=== PATIENT | female | born 1950 | race Hispanic/Latino ===

== ENCOUNTER 2020-08-23 07:32 | Day surgery (SDC) | payer MEDICARE ==
[2020-08-23] MEDS ORDERED: SODIUM CHLORIDE 0.9% 500 ML 500 ML IV SCH (08:00)
[2020-08-23 08:22] LABS: Basophils # (Auto) 0.1 K/mm3 (0.0-0.1); Basophils % (Auto) 1.1 % (0.0-1.8); Eosinophils # (Auto) 0.3 K/mm3 (0.0-0.4); Eosinophils % (Auto) 4.3 % (0.0-4.3); Hematocrit 36.1 % (30.3-42.9); Hemoglobin 12.8 gm/dl (10.1-14.3); Lymphocytes % (Auto) 26.1 % (13.4-35.0); Mean Corpuscular HGB Conc 36 % (30-34); Mean Corpuscular Volume 90 fl (79-97); Monocytes # (Auto) 0.4 K/mm3 (0.0-0.8); Monocytes % (Auto) 5.2 % (0.0-7.3); Platelet Count 198 K/mm3 (140-440); Red Blood Count 4.01 M/mm3 (3.65-5.03); Red Cell Distribution Width 14.5 % (13.2-15.2)
[2020-08-23] MEDS ORDERED: ASPIRIN EC 325 MG TAB PO ONE ×2 (08:25→08:50)
[2020-08-23 08:32] LABS: INR 0.95 (0.87-1.13); Partial Thromboplastin Time 26.5 Sec. (24.2-36.6)
[2020-08-23 08:35] LABS: Calcium 10.1 mg/dL (8.4-10.2)
[2020-08-23] MEDS ORDERED: HEPARIN/NS 5000 UNIT/500ML 1,000 ML IR ONE (08:42)
[2020-08-23] MEDS ORDERED: diphenhydrAMINE 50 MG/ML VIAL IV NR (08:47)
[2020-08-23] MEDS ORDERED: diphenhydrAMINE 50 MG/ML VIAL ONE (08:52)
[2020-08-23] MEDS ORDERED: ATROPINE 0.1% (1 MG/10 ML) CARDIAC SYRINGE ONE (08:54)
[2020-08-23] MEDS ORDERED: DEXTROSE 50% IN WATER (25GM) 50 ML SYRINGE IV ONE (09:10)
[2020-08-23] MEDS: fentaNYL 100 MCG/2 ML INJ ONE ×2 (09:34→09:42)
[2020-08-23] MEDS: MIDAZOLAM 2 MG/2 ML INJ ONE ×2 (09:34→09:42)
[2020-08-23] MEDS: LIDOCAINE (2%) 20 MG/1 ML VIAL 20 ML MDV INFILTRATI ONE ×2 (09:34→09:44)
[2020-08-23] MEDS: VERAPAMIL 5 MG/2 ML INJ ONE ×2 (09:35→09:46)
[2020-08-23] MEDS: HEPARIN 10,000 UNITS/10 ML VIAL ONE ×2 (09:35→09:46)
[2020-08-23] MEDS: NITROGLYCERIN SYRINGE 3 ML ONE ×2 (09:36→09:46)
[2020-08-23] MEDS ORDERED: D5W/0.45% NACL 1,000 ML IV SCH (10:00)
--- NOTE | 2020-08-23 11:05 | Cardiac Catherization Report ---
DATE OF SERVICE: 08/23/2020 CARDIAC CATHETERIZATION REPORT REASON FOR PROCEDURE: The patient is a 70-year-old woman with coronary artery disease, who is referred for a cardiac catheterization. INDICATION: Abnormal preoperative thallium stress test, in preparation for left shoulder surgery. She has a long history of coronary artery disease, with a chronic total occlusion of the LAD. The LAD is known to have a complete occlusion within the long stented segment extending from its proximal through the mid segment into the distal vessel. A previous attempt at coronary bypass surgery was unsuccessful and the patient was instead treated with transmyocardial laser revascularization. She was thereafter placed on maximal antianginal therapy for non-revascularizable LAD disease. Risks and benefits of the cardiac catheterization procedure were discussed with the patient, she consented to proceed. PROCEDURES PERFORMED: 1. Left heart catheterization. 2. Selective left and right coronary angiography. 3. Selective angiography of saphenous vein graft. 4. Sedation time start 09:43 and 09:55. DESCRIPTION OF PROCEDURE: The patient was prepped and draped in a sterile fashion after informed consent. The right radial cath site was prepped and draped after a negative Cornell's test. The right radial artery was entered using the Seldinger technique followed by placement of a 6-Kenyan hydrophilic sheath. Routine radial cocktail was administered via the sheath. We then performed left coronary angiography using a #3.5 left Reta catheter. A 4 right Reta was used for right coronary angiography. The right Reta was also used for angiography of the stump of a single saphenous vein graft. The catheters were then removed, sheath removed and hemostasis achieved using Angio-Seal device. The patient was returned to the postprocedure unit in stable condition. There were no complications. FINDINGS: HEMODYNAMICS: Ascending aortic pressure was 95/59. CORONARY ANGIOGRAPHY: Left main coronary artery contained mild irregularities. The left anterior descending artery was completely occluded in its proximal to midsegment after a medium sized first diagonal branch. The entire mid segment and the distal segment extending near the apex consisted of continuous stent. The entire stented segment was completely occluded. There was faint collateralization of the small apical segment of the LAD with left to left collaterals. The circumflex artery was a fairly large system, codominant with the right coronary artery, and was free of significant disease. The right coronary artery was a small caliber, codominant, and contained [id number] atherosclerosis of its mid segment. We performed a limited angiography of a stump of a saphenous vein graft, occluded at its ostium. Left ventricular angiography was not performed, echocardiogram is recommended for left ventricular function and valvular function assessment. CONCLUSION: 1. Coronary artery disease as above with a chronic total occlusion of the LAD extending from its proximal to mid segment, through the entire vessel within a long previously stented segment. This appears unchanged from the patient's previous invasive evaluations. 2. Otherwise, no obstructive disease noted in the left main, first diagonal branch, circumflex and right coronary systems. RECOMMENDATIONS: Aggressive risk factor modification including smoking cessation. Continue optimal guideline-directed medical therapy for a small vessel, non-revascularizable coronary artery disease. TID: [id number] RECEIPT: [id number] BREANN/AL
[2020-08-23] MEDS ORDERED: traMADol 50 MG TAB PO PRN (11:20)
--- NOTE | 2020-08-23 11:23 | Discharge Summary ---
Short Stay Discharge Plan Activity: advance as tolerated Weight Bearing Status: Full Weight Bearing Diet: low fat, low cholesterol, low salt, diabetic Wound: keep clean and dry Special Instructions: smoking cessation, no heavy lifting Follow up with: BOB JIANG MD [Primary Care Provider] - 7 Days SHANTE RODRIGUEZ MD [Staff Physician] - 7 Days
[2020-08-23] MEDS ORDERED: SODIUM CHLORIDE 0.9% 1000 ML 1,000 ML IV SCH (11:30)
[2020-08-23 15:24] VITALS: BP 129/58
--- NOTE | 2020-08-26 18:59 | Electrocardiograph Report ---
[facility] Test Date: 2020-08-23 Test Time: 08:18:27 Pat Name: SIOMARA LARA Department: Room: Gender: F Disability Program Navigator: SHALINI : 1950 Requested By: DONATO FRANK Order Number: [id number] Reading MD: Mati Espinosa Measurements Intervals Brillion Rate: 59 P: -59 TN: 181 QRS: 28 QRSD: 84 T: 87 QT: 420 QTc: 416 Interpretive Statements Sinus or ectopic atrial rhythm Low voltage, extremity leads No previous ECG available for comparison Electronically Signed On 08-26-2020 18:59:03 EDT by Mati Espinosa
== END 2020-08-23 16:03 | disposition home or self-care (01) ==
LOC: CATHLABREC 07:32
PROVIDERS: ATTEND Internal Medicine Cardiovascular Disease
DX: I25.810 Atherosclerosis of coronary artery bypass graft(s) without angina pectoris (principal); R94.39 Abnormal result of other cardiovascular function study; I25.10 Atherosclerotic heart disease of native coronary artery without angina pectoris; E78.5 Hyperlipidemia, unspecified; I11.0 Hypertensive heart disease with heart failure; I50.9 Heart failure, unspecified; J44.9 Chronic obstructive pulmonary disease, unspecified; K21.9 Gastro-esophageal reflux disease without esophagitis; M79.7 Fibromyalgia; M19.90 Unspecified osteoarthritis, unspecified site; F32.9 Major depressive disorder, single episode, unspecified; D64.9 Anemia, unspecified; Z82.5 Family history of asthma and other chronic lower respiratory diseases; Z82.61 Family history of arthritis; Z79.4 Long term (current) use of insulin; Z88.5 Allergy status to narcotic agent; Z88.8 Allergy status to other drugs, medicaments and biological substances; Z79.899 Other long term (current) drug therapy; Z98.49 Cataract extraction status, unspecified eye; Z95.1 Presence of aortocoronary bypass graft; Z90.49 Acquired absence of other specified parts of digestive tract; Z85.3 Personal history of malignant neoplasm of breast; Z90.12 Acquired absence of left breast and nipple; Z98.890 Other specified postprocedural states; Z90.13 Acquired absence of bilateral breasts and nipples; Z72.89 Other problems related to lifestyle; Z82.49 Family history of ischemic heart disease and other diseases of the circulatory system; Z86.73 Personal history of transient ischemic attack (TIA), and cerebral infarction without residual deficits
CPT/HCPCS: 36415; 80048; 82962; 85025; 85610; 85730; 93005; 93455; 99156; C1894; J1200; J1644; J2250; J3010; J7040; 93454; 93459; J7070; J0461; Q9967